=== PATIENT | female | born 1970 | race Hispanic/Latino ===

== ENCOUNTER 2022-05-23 17:30 | Inpatient (IN) | payer BC ==
[~2022-05-23] VITALS: Ht 157.5 cm; Wt 90.9 kg
[2022-05-23 18:21] LABS: BASOPHILS % (AUTO) 0.6 % (0.0-5.0); EOSINOPHILS % (AUTO) 2.9 % (0.0-8.0); HEMATOCRIT 38.4 % (36-48); LYMPHOCYTES % (AUTO) 12.5 % (21.0-51.0); MEAN CORPUSCULAR HEMOGLOBIN 29.6 pg (27.0-33.0); MEAN CORPUSCULAR HGB CONC 33.3 g/dL (32.0-36.0); MEAN CORPUSCULAR VOLUME 88.9 fL (79-99); NEUTROPHILS % (AUTO) 71.5 % (40.0-77.0); PLATELET COUNT (AUTO) 311 K/uL (130-400); RED BLOOD CELL COUNT(AUTO) 4.32 MIL/uL (4.00-5.50); RED CELL DISTRIBUTION WIDTH 12.3 % (11.0-15.5); WHITE BLOOD COUNT (AUTO) 6.5 K/uL (4.8-10.8)
[2022-05-23 18:34] LABS: CREATININE 0.8 mg/dL (0.5-1.5); POTASSIUM 3.9 mmol/L (3.5-5.1)
[2022-05-23 18:38] LABS: ALBUMIN 2.9 g/dL (3.5-5.0)
[2022-05-23] MEDS ORDERED: LACTULOSE 20 GM/30 ML UDCUP PO PRN (20:00)
[2022-05-23] MEDS ORDERED: MAG/ALUM/SIMETH 30 ML UDCUP PO PRN (20:00)
[2022-05-23] MEDS ORDERED: GUAIFENESIN-DM 200/20 MG 10 ML PO PRN (20:00)
[2022-05-23] MEDS ORDERED: MORPHINE 2 MG SYG IV PRN (20:00)
[2022-05-23] MEDS ORDERED: ACETAMINOPHEN 325 MG TAB PO PRN ×2 (20:00)
[2022-05-23] MEDS ORDERED: ACETAMINOPHEN WITH CODEINE 1 TAB TAB PO PRN (20:00)
[2022-05-23] MEDS ORDERED: ALBUTEROL 0.083% 2.5 MG/3 ML INH IH PRN (20:00)
[2022-05-23] MEDS ORDERED: ONDANSETRON 4MG INJ IV PRN (20:00)
[2022-05-23 21:26] LABS: CRP QUANTITATIVE 111.6 mg/L (0.00-9.0); THYROID STIMULATING HORMONE 4.9 uIU/mL (0.36-3.74)
[2022-05-23] MEDS: CEFTRIAXONE 2GM VIAL IVP SCH (21:45)
[2022-05-23 22:22] LABS: APPEARANCE,URINE CLOUDY (CLEAR); BILIRUBIN,URINE NEGATIVE (NEGATIVE); COLOR,URINE LIGHT-YELLOW (YELLOW); GLUCOSE, URINE (UA) NEGATIVE (NEGATIVE); KETONES,URINE NEGATIVE (NEGATIVE); LEUKOCYTE ESTERASE ,URINE 75 Leu/uL (NEGATIVE); NITRATE,URINE NEGATIVE (NEGATIVE); PH,URINE 7.5 (5.0-8.0); PROTEIN,URINE 10 mg/dL (NEGATIVE)
[2022-05-23 22:43] LABS: BACTERIA,URINE RARE /HPF (None Seen); MUCUS,URINE RARE LPF (None Seen); SQUAMOUS EPITHELIAL CELL,UR FEW /HPF (0-2)
[2022-05-24] VITALS (16 sets, daily range): BP systolic 93–137; BP diastolic 58–82
[2022-05-24] MEDS: LEVOTHYROXINE 125 MCG TABLET PO SCH (05:31)
[2022-05-24 06:24] LABS: HEMATOCRIT 34.1 % (36-48); MEAN CORPUSCULAR HEMOGLOBIN 30.2 pg (27.0-33.0); MEAN CORPUSCULAR HGB CONC 33.7 g/dL (32.0-36.0); MEAN CORPUSCULAR VOLUME 89.5 fL (79-99); RED BLOOD CELL COUNT(AUTO) 3.81 MIL/uL (4.00-5.50); RED CELL DISTRIBUTION WIDTH 12.4 % (11.0-15.5); WHITE BLOOD COUNT (AUTO) 5.8 K/uL (4.8-10.8)
[2022-05-24 06:34] LABS: CREATININE 0.7 mg/dL (0.5-1.5); POTASSIUM 3.8 mmol/L (3.5-5.1)
[2022-05-24 08:26] LABS: INR 1.05 (0.85-1.15); PROTHROMBIN TIME 11.4 SEC (9.6-11.6)
[2022-05-24 08:28] LABS: PARTIAL THROMBOPLASTIN TIME 29.1 SEC (26.3-35.5)
[2022-05-24] MEDS ORDERED: ENOXAPARIN SODIUM 40 MG/0.4 ML SYRINGE SQ SCH (09:00)
[2022-05-24] MEDS ORDERED: FAMOTIDINE 20MG VIAL IV SCH (09:00)
[2022-05-24 14:13] LABS: BF LYMPHOCYTE 46 %; BF MESOTHELIAL 1 %; BF MONOCYTE 6 %
[2022-05-24 14:15] LABS: APPEARANCE BODY FLUID TURBID (CLEAR); COLOR,BODY FLUID RED (LT YELLOW); SPECIMENTYPE,BODY FLUID PLEURAL; TOTAL VOLUME,BODY FLUID 1500 mL
[2022-05-24 16:07] LABS: BODY FLUID RBC 31100 /cu. mm.; BODY FLUID WBC 112 /cu. mm.
[2022-05-24] MEDS: CEFTRIAXONE 2GM VIAL IVP SCH (21:07)
[2022-05-25 04:00] VITALS: BP 133/60
[2022-05-25 05:34] LABS: HEMATOCRIT 35.1 % (36-48); MEAN CORPUSCULAR HEMOGLOBIN 29.8 pg (27.0-33.0); MEAN CORPUSCULAR HGB CONC 33.3 g/dL (32.0-36.0); MEAN CORPUSCULAR VOLUME 89.3 fL (79-99); RED BLOOD CELL COUNT(AUTO) 3.93 MIL/uL (4.00-5.50); RED CELL DISTRIBUTION WIDTH 12.5 % (11.0-15.5); WHITE BLOOD COUNT (AUTO) 5.2 K/uL (4.8-10.8)
[2022-05-25 05:47] LABS: CREATININE 0.7 mg/dL (0.5-1.5); POTASSIUM 4.1 mmol/L (3.5-5.1)
[2022-05-25] MEDS: LEVOTHYROXINE 125 MCG TABLET PO SCH (06:06)
[2022-05-25 07:41] VITALS: BP 105/68
[2022-05-25] MEDS ORDERED: CEPH500B PO (10:36)
[2022-05-25 10:57] VITALS: BP 111/84
== END 2022-05-25 13:30 | disposition home or self-care (01) | DRG 543 ==
LOC: EDH 17:30 → EDHIP 19:39 → 3BH 05-24 01:28
PROVIDERS: ADMIT Hospitalist; ATTEND Hospitalist
PROC: 0W993ZZ Drainage of Right Pleural Cavity, Percutaneous Approach (ICD-10-PCS; principal; 2022-05-23)
DX: C79.51 Secondary malignant neoplasm of bone (principal); J91.0 Malignant pleural effusion; J98.11 Atelectasis; R05.9 Cough, unspecified; E66.9 Obesity, unspecified; C50.911 Malignant neoplasm of unspecified site of right female breast; Z20.822 Contact with and (suspected) exposure to COVID-19; E03.9 Hypothyroidism, unspecified; Z90.11 Acquired absence of right breast and nipple; Z92.21 Personal history of antineoplastic chemotherapy; Z92.3 Personal history of irradiation; Z68.36 Body mass index [BMI] 36.0-36.9, adult
CPT/HCPCS: 32555; 36415; 71045; 71250; 80048; 80053; 81001; 83880; 84145; 84443; 84484; 85025; 85027; 85378; 85610; 85730; 86140; 87071; 87077; 87088; 87186; 87205; 87635; 87804; 89051; 93005; 94640; 94664; C1729; G0378; J0696; J1650; J3490